=== PATIENT | female | born 1985 | race Caucasian/White ===

== ENCOUNTER 2016-04-16 19:11 | Emergency (ER) | payer OTHER, MEDICAID ==
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
[2016-04-16] MEDS ORDERED: HYDROCODONE/ACETAMINOPHEN 5-325 MG 6 TAB/DSPK PO PRN (22:53)
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
[2016-04-16 23:51] VITALS: BP 103/57
== END 2016-04-16 23:45 | disposition home or self-care (01) ==
LOC: ER 19:11
DX: S16.1XXA Strain of muscle, fascia and tendon at neck level, initial encounter (principal); S50.02XA Contusion of left elbow, initial encounter; V43.62XA Car passenger injured in collision with other type car in traffic accident, initial encounter; M25.522 Pain in left elbow; M54.2 Cervicalgia; M54.89 Other dorsalgia; I10 Essential (primary) hypertension; F17.200 Nicotine dependence, unspecified, uncomplicated; Z88.6 Allergy status to analgesic agent; Z88.5 Allergy status to narcotic agent; Z98.890 Other specified postprocedural states; Z87.81 Personal history of (healed) traumatic fracture
CPT/HCPCS: 72050; 99283

== ENCOUNTER → 2016-10-22 | Outpatient (CLI) | payer OTHER, MEDICAID ==
--- NOTE | 2016-10-22 15:52 | RADIOLOGY REPORT (SQ) ---
EXAM DESCRIPTION: BARIUM SWALLOW PHARYNX ONLY COMPLETED DATE/TIME: 10/22/2016 8:50 am REASON FOR STUDY: HIATAL HERNIA (K44.9) K44.9 DIAPHRAGMATIC HERNIA WITHOUT OBSTRUCTION OR GANGRENE COMPARISON: None. TECHNIQUE: Under fluoroscopic guidance, patient ingested effervescent granules followed by thick and thin barium. Fluoroscopic spot images and routine radiographic images acquired and stored on PACS. 12 MM BARIUM TABLET GIVEN: Yes. No significant delay in passage. LIMITATIONS: None. FLUOROSCOPY TIME: FLUORO TIME: 44 seconds Is 10 images saved to PACS. FINDINGS: NEUROMUSCULAR COORDINATION OF SWALLOW: Normal. No aspiration. ESOPHAGEAL MOTILITY: Normal peristalsis. No esophageal spasm. ESOPHAGEAL MUCOSA: Normal mucosa without masses or ulceration. GASTRO-ESOPHAGEAL JUNCTION: Small sliding hiatal hernia. No reflux. NON-GI TRACT STRUCTURES: No significant finding. OTHER: No other significant finding. IMPRESSION: Small sliding hiatal hernia. No reflux observed. COMMENT: Quality ID [id number]: Final reports for procedures using fluoroscopy that document radiation exp osure indices, or exposure time and number of fluorographic images (if radiation exposure indices are not available) TECHNICAL DOCUMENTATION: JOB ID: [id number] [employer]- All Rights Reserved
== END ==
LOC: RAD 07:46
PROVIDERS: ATTEND Family Medicine
DX: K44.9 Diaphragmatic hernia without obstruction or gangrene (principal)
CPT/HCPCS: 74210

== ENCOUNTER → 2016-11-08 | Outpatient (CLI) | payer OTHER, MEDICAID ==
--- NOTE | 2016-11-09 04:45 | EKG REPORT ---
SEVERITY:- NORMAL ECG - SINUS RHYTHM : Confirmed by: Susana Ortiz MD 09-Nov-2016 04:28:59
== END ==
LOC: OD 15:36
PROVIDERS: ATTEND Family Medicine
DX: R00.2 Palpitations (principal)
CPT/HCPCS: 93005; 93010

== ENCOUNTER 2016-11-10 10:30 | Day surgery (SDC) | payer OTHER, MEDICAID ==
[2016-11-10] MEDS ORDERED: ONDANSETRON HCL INJ/PF 4 MG/2 ML SDV ONE (10:44)
[2016-11-10] MEDS ORDERED: NALOXONE HCL INJ/PF 0.4 MG/1 ML SDV ONE (10:44)
[2016-11-10] MEDS ORDERED: DIPHENHYDRAMINE HCL 50 MG/ML VIAL ONE (10:44)
[2016-11-10] MEDS ORDERED: FLUMAZENIL INJ 0.5 MG/5 ML VIAL ONE (10:45)
[2016-11-10] MEDS ORDERED: EPINEPHRINE INJ 1 MG/10 ML DISP.SYRIN ONE (10:45)
[2016-11-10] MEDS ORDERED: GLUCAGON,HUMAN RECOMB 1 MG INJ ONE (10:45)
[2016-11-10] MEDS: MIDAZOLAM 2 MG/2 ML INJ ONE ×4 (11:12→11:32)
[2016-11-10] MEDS: FENTANYL CITRATE INJ/PF 100 MCG/2 ML AMPUL ONE ×6 (11:14→11:28)
--- NOTE | 2016-11-10 11:38 | Operative Report ---
Operative Report DATE OF SURGERY: 11/10/16 Operative Report: The risks benefits and alternatives of the procedure explained to the patient in detail and informed consent is obtained.A GIF Olympus video scope was inserted into the patient's mouth and hypopharynx, the esophagus is identified intubated and insufflated, the scope was then advanced through the esophagus stomach and duodenum, retroflexion maneuver is done, the esophagus stomach and first and second portions of the duodenum examined PREOPERATIVE DIAGNOSIS: Dysphagia POSTOPERATIVE DIAGNOSIS: Schatzki's ring status post breakage. Esophageal specimens obtained to rule out eosinophilic esophagitis. Hiatal hernia. Gastritis status post biopsy rule out Helicobacter pylori OPERATION: EGD with biopsy SURGEON: JARRET MARQUEZ ANESTHESIA: Moderate Sedation - 7 mg of Versed, 200 mcg of fentanyl. Conscious sedation monitoring time 30 minutes. TISSUE REMOVED OR ALTERED: As noted above. COMPLICATIONS: None. ESTIMATED BLOOD LOSS: None. INTRAOPERATIVE FINDINGS: As noted above. PROCEDURE: Patient tolerated the procedure well. No immediate postprocedure complications are noted. Patient discharged in good condition. Discharge date 11/10/2016. Discharge diet: Regular. Discharge activity: Regular. 2-3 week follow-up to discuss findings. Patient is instructed to call the office or proceed to the emergency room should there be any further problems or questions. We will wait on pathology.
[2016-11-10] MEDS ORDERED: SIMETHICONE 80 MG TAB.CHEW ONE (12:35)
[2016-11-10 13:31] VITALS: BP 97/59
== END 2016-11-10 13:00 | disposition home or self-care (01) ==
LOC: END 10:30
PROVIDERS: ATTEND Internal Medicine Gastroenterology
PROC: 0DB58ZX Excision of Esophagus, Via Natural or Artificial Opening Endoscopic, Diagnostic (ICD-10-PCS; 2016-11-10)
PROC: 0DB68ZX Excision of Stomach, Via Natural or Artificial Opening Endoscopic, Diagnostic (ICD-10-PCS; principal; 2016-11-10 11:00)
DX: K22.2 Esophageal obstruction (principal); K29.50 Unspecified chronic gastritis without bleeding; B96.81 Helicobacter pylori [H. pylori] as the cause of diseases classified elsewhere; K44.9 Diaphragmatic hernia without obstruction or gangrene
CPT/HCPCS: 43239; 88342 ×2; 88305 ×2; J2250; J3010; J0171; J1200; J1610; J2310; J2405; J3490

== ENCOUNTER 2017-01-25 12:15 | Emergency (ER) | payer MEDICAID, OTHER ==
--- NOTE | 2017-01-25 13:12 | ER Document Report ---
ED GI/ - General Chief Complaint: Abdominal Pain Stated Complaint: ABDOMINAL PAIN Time Seen by Provider: 01/25/17 13:12 Mode of Arrival: Ambulatory Information source: Patient Notes: PCP: Dr. Pope. 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 Also had red blood with BM today, hx hemorroids. TRAVEL OUTSIDE OF THE [place] IN LAST 30 DAYS: No - Related Data Allergies/Adverse Reactions: codeine Allergy (Verified 01/25/17 12:17) Anaphylaxis Past Medical History - General Information source: Patient - Social History Smoking Status: Current Every Day Smoker Frequency of alcohol use: None Drug Abuse: None Lives with: Spouse/Significant other Family History: Reviewed & Not Pertinent Patient has suicidal ideation: No Patient has homicidal ideation: No - Past Medical History Cardiac Medical History: Neurological Medical History: Reports: Hx Migraine, Hx Seizures - epilepsy Endocrine Medical History: Reports: Hx Hypothyroidism Renal/ Medical History: Denies: Hx Peritoneal Dialysis GI Medical History: Reports: Other - hemorrhoids Musculoskeltal Medical History: Reports Hx Arthritis - possibly LT elbow, osteoarthritis, Reports Hx Musculoskeletal Trauma Psychiatric Medical History: Reports: Hx Anxiety, Hx Depression Traumatic Medical History: Reports: Hx Fractures Infectious Medical History: Past Surgical History: Reports: Hx Abdominal Surgery - intestines, Hx Appendectomy, Hx Section, Hx Cholecystectomy, Hx Orthopedic Surgery - L elbow, L shoulder, Hx Thyroid Surgery, Hx Tonsillectomy - Immunizations Immunizations up to date: Yes Hx Diphtheria, Pertussis, Tetanus Vaccination: Yes Review of Systems - Review of Systems Constitutional: No symptoms reported EENT: No symptoms reported Cardiovascular: No symptoms reported Respiratory: No symptoms reported Gastrointestinal: See HPI Genitourinary: No symptoms reported Female Genitourinary: No symptoms reported Musculoskeletal: No symptoms reported Skin: No symptoms reported Hematologic/Lymphatic: No symptoms reported Neurological/Psychological: No symptoms reported Physical Exam - Vital signs Vitals: Temp Resp BP Pulse Ox 98.0 F 18 105/71 99 01/25/17 15:03 01/25/17 15:03 01/25/17 15:03 01/25/17 15:03 Interpretation: Normal - General General appearance: Appears well, Alert - HEENT Head: Normocephalic, Atraumatic Eyes: Normal Pupils: PERRL Pharynx: Normal Neck: Supple - Respiratory Respiratory status: No respiratory distress Chest status: Tender - lower right lateral sternal margin, no rash or bruise Breath sounds: Normal Chest palpation: Normal - Cardiovascular Rhythm: Regular Heart sounds: Normal auscultation Murmur: No - Abdominal Inspection: Normal Distension: No distension Bowel sounds: Normal Tenderness: Nontender. No: Tender Organomegaly: No organomegaly - Rectal Tenderness: No Hemorrhoids: None - visualized - Back Back: Normal, Nontender - Extremities General upper extremity: Normal inspection, Nontender, Normal color, Normal ROM , Normal temperature General lower extremity: Normal inspection, Nontender, Normal color, Normal ROM , Normal temperature, Normal weight bearing. No: Sb's sign - Neurological Neuro grossly intact: Yes Cognition: Normal Orientation: AAOx4 [place] Coma Scale Eye Opening: Spontaneous [place] Coma Scale Verbal: Oriented [place] Coma Scale Motor: Obeys Commands [place] Coma Scale Total: 15 Speech: Normal Motor strength normal: LUE, RUE, LLE, RLE Sensory: Normal - Psychological Associated symptoms: Normal affect, Normal mood - Skin Skin Temperature: Warm Skin Moisture: Dry Skin Color: Normal Skin irregularity: negative: Rash Course - Re-evaluation Re-evalutation: 01/25/17 14:40 labs not done yet. Chest xray negative. - Vital Signs Vital signs: Temp Pulse Resp BP Pulse Ox 98.6 F 66 18 102/65 97 01/25/17 16:20 01/25/17 16:20 01/25/17 15:03 01/25/17 16:20 01/25/17 16:20 - Laboratory Result Diagrams: 01/25/17 14:58 01/25/17 14:58 Laboratory results interpreted by me: 01/25/17 01/25/17 14:58 14:58 WBC 12.4 H Monocytes % (Manual) 2 L Abs Neuts (Manual) 9.2 H BUN 21 H Calcium 10.7 H AST 160 H ALT 269 H Alkaline Phosphatase 235 H Discharge - Discharge Clinical Impression: left sternal margin strain, Nausea, Liver enzyme elevation Condition: Good Disposition: HOME, SELF-CARE Instructions: Use of [id number] Ibuprofen ([facility]), Liver Function Abnormality ([facility]), Muscle Strain ([facility]) Additional Instructions: no tylenol take ibuprofen for pain warm compress copy of labs given to you Referrals: SANDRA POPE DO [Primary Care Provider] - 01/27/17
--- NOTE | 2017-01-25 14:04 | RADIOLOGY REPORT (SQ) ---
EXAM DESCRIPTION: CHEST PA/LAT COMPLETED DATE/TIME: 01/25/2017 1:57 pm REASON FOR STUDY: left lower sternal margin tender COMPARISON: Two-view chest 05/04/2014 EXAM PARAMETERS: NUMBER OF VIEWS: two views TECHNIQUE: Digital Frontal and Lateral radiographic views of the chest acquired. RADIATION DOSE: NA LIMITATIONS: none FINDINGS: LUNGS AND PLEURA: No opacities, masses or pneumothorax. No pleural effusion. MEDIASTINUM AND HILAR STRUCTURES: No masses or contour abnormalities. HEART AND VASCULAR STRUCTURES: Heart normal size. No evidence for failure. BONES: No acute findings. HARDWARE: None in the chest. OTHER: No other significant finding. IMPRESSION: NO SIGNIFICANT RADIOGRAPHIC FINDING IN THE CHEST. TECHNICAL DOCUMENTATION: JOB ID: [id number] [employer]- All Rights Reserved
[2017-01-25] MEDS ORDERED: ACETAMINOPHEN 325 MG TABLET PO ONE (14:39)
[2017-01-25 15:24] LABS: HEMATOCRIT 36.3 % (36.0-47.0); HEMOGLOBIN 12.4 g/dL (12.0-15.5); HGB HCT DIFFERENCE 0.9; MEAN CORPUSCULAR VOLUME 91 fl (80-97); RED BLOOD COUNT 3.99 10^6/uL (3.72-5.28); RED CELL DISTRIBUTION WIDTH 13.6 % (11.5-14.0); WHITE BLOOD COUNT 12.4 10^3/uL (4.0-10.5)
[2017-01-25 15:32] LABS: APPEARANCE,URINE CLEAR; BILIRUBIN,URINE NEGATIVE (NEGATIVE); GLUCOSE, URINE NEGATIVE (NEGATIVE); KETONES,URINE NEGATIVE (NEGATIVE); LEUKOCYTE ESTERASE,URINE NEGATIVE (NEGATIVE); NITRITE,URINE NEGATIVE (NEGATIVE); PROTEIN,URINE NEGATIVE (NEGATIVE); URINE SPECIFIC GRAVITY 1.016; UROBILINOGEN,URINE NEGATIVE mg/dL (<2.0)
[2017-01-25 15:39] LABS: ALANINE AMINOTRANSFERASE 269 U/L (9-52); ALBUMIN 4.3 g/dL (3.5-5.0); ALKALINE PHOSPHATASE 235 U/L (38-126); ANION GAP 8 (5-19); ASPARTATE AMINO TRANSFERASE 160 U/L (14-36); BILIRUBIN,DIRECT 0.2 mg/dL (0.0-0.4); BILIRUBIN,TOTAL 0.4 mg/dL (0.2-1.3); BLOOD UREA NITROGEN 21 mg/dL (7-20); CALCIUM 10.7 mg/dL (8.4-10.2); CARBON DIOXIDE 27 mmol/L (22-30); CHLORIDE 106 mmol/L (98-107); CREATININE RESULT 1.05 mg/dL (0.52-1.25); GLUCOSE 94 mg/dL (75-110); LIPASE 49.5 U/L (23-300); POTASSIUM 4.1 mmol/L (3.6-5.0); SODIUM 141.2 mmol/L (137-145); TOTAL PROTEIN 7.3 g/dL (6.3-8.2)
[2017-01-25 15:57] LABS: ABSOLUTE EOSINOPHILS# (MANUAL) 0.4 10^3/uL (0.0-0.6); BASOPHILS % (MANUAL) 1 % (0-2); EOSINOPHILS % (MANUAL) 3 % (0-6); LYMPHOCYTES % (MANUAL) 20 % (13-45); TOTAL CELLS COUNTED 100
[2017-01-25 15:59] LABS: TOXIC GRANULATION 1+
[2017-01-25 16:30] VITALS: BP 102/65
== END 2017-01-25 16:20 | disposition home or self-care (01) ==
LOC: ER 12:15
DX: S29.011A Strain of muscle and tendon of front wall of thorax, initial encounter (principal); W03.XXXA Other fall on same level due to collision with another person, initial encounter; R74.8 Abnormal levels of other serum enzymes; R10.9 Unspecified abdominal pain; R11.0 Nausea; F17.200 Nicotine dependence, unspecified, uncomplicated; Z88.6 Allergy status to analgesic agent; Z90.49 Acquired absence of other specified parts of digestive tract
CPT/HCPCS: 36415; 71020; 80053; 81001; 83690; 84703; 85025; 87086; 99284

== ENCOUNTER 2017-03-27 00:50 | Emergency (ER) | payer OTHER ==
[2017-03-27 02:02] LABS: HEMATOCRIT 36.8 % (36.0-47.0); HEMOGLOBIN 12.5 g/dL (12.0-15.5); MEAN CORPUSCULAR HEMOGLOBIN 30.4 pg (27.0-33.4); MEAN CORPUSCULAR HGB CONC 34.1 g/dL (32.0-36.0); MEAN CORPUSCULAR VOLUME 89 fl (80-97); PLATELET COUNT 364 10^3/uL (150-450); RED BLOOD COUNT 4.12 10^6/uL (3.72-5.28); RED CELL DISTRIBUTION WIDTH 13.1 % (11.5-14.0); WHITE BLOOD COUNT 20.3 10^3/uL (4.0-10.5)
[2017-03-27 02:17] LABS: ABSOLUTE LYMPHOCYTES# (MANUAL) 6.9 10^3/uL (0.5-4.7); ABSOLUTE NEUTROPHILS# (MANUAL) 11.8 10^3/uL (1.7-8.2); EOSINOPHILS % (MANUAL) 1 % (0-6); LYMPHOCYTES % (MANUAL) 34 % (13-45); MONOCYTES % (MANUAL) 5 % (3-13); SEGMENTED NEUTROPHILS % (MAN) 58 % (42-78); TOTAL CELLS COUNTED 100
[2017-03-27 02:19] LABS: ALANINE AMINOTRANSFERASE 73 U/L (9-52); ALBUMIN 4.4 g/dL (3.5-5.0); ALKALINE PHOSPHATASE 160 U/L (38-126); ANION GAP 14 (5-19); ASPARTATE AMINO TRANSFERASE 28 U/L (14-36); BILIRUBIN,DIRECT 0.2 mg/dL (0.0-0.4); BILIRUBIN,TOTAL 0.2 mg/dL (0.2-1.3); BLOOD UREA NITROGEN 7 mg/dL (7-20); CALCIUM 7.9 mg/dL (8.4-10.2); CARBON DIOXIDE 25 mmol/L (22-30); CHLORIDE 105 mmol/L (98-107); GLUCOSE 84 mg/dL (75-110); POTASSIUM 4.1 mmol/L (3.6-5.0); SODIUM 143.7 mmol/L (137-145); TOTAL PROTEIN 7.4 g/dL (6.3-8.2)
[2017-03-27 02:25] LABS: BASOPHILS % (MANUAL) 2 % (0-2); PLATELET CLUMPS PRESENT; PLATELET COMMENT ADEQUATE; PLATELET LARGE PRESENT
[2017-03-27 02:27] LABS: RBC MORPHOLOGY COMMENT NORMO-CYTIC/CHROMIC
[2017-03-27 03:15] LABS: APPEARANCE,URINE CLEAR; BILIRUBIN,URINE NEGATIVE (NEGATIVE); COLOR,URINE STRAW; GLUCOSE, URINE NEGATIVE (NEGATIVE); KETONES,URINE NEGATIVE (NEGATIVE); LEUKOCYTE ESTERASE,URINE NEGATIVE (NEGATIVE); NITRITE,URINE NEGATIVE (NEGATIVE); PROTEIN,URINE NEGATIVE (NEGATIVE); URINE SPECIFIC GRAVITY 1.002; UROBILINOGEN,URINE NEGATIVE mg/dL (<2.0)
[2017-03-27] MEDS ORDERED: CALCIUM GLUCONATE 1000 MG/10 ML INJ IV ONE (03:17)
[2017-03-27] MEDS ORDERED: DIAZEPAM INJ 10 MG/2 ML DISP.SYRIN IV ONE (03:27)
[2017-03-27 04:11] LABS: FREE T4 (FREE THYROXINE) 1.3 ng/dL (0.78-2.19)
--- NOTE | 2017-03-27 04:20 | ER Document Report ---
ED General - General Chief Complaint: Tremor Stated Complaint: ANXIETY Time Seen by Provider: 03/27/17 03:15 Notes: She is a 31-year-old female who presents with complaints of having spasm into her arms and legs and feels as if her fingers will not open up. 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 She says she is followed by Dr. dale akers. She said she was recently had a calcium levels drawn and there will bit low. TSH level was also high. They kept her thyroid at the same level. She says that she is now developed the carpopedal spasms she fears that her calcium and magnesium may be way off. She is to follow with a child & adolescent psychiatrist. She said she stopped following with child & adolescent psychiatrist since he was in [place] and her primary care doctor was here in [place]. She said she preferred just to follow with her primary care doctor. She says her calcium levels have always fluctuated. She says she is taking her calcium supplement as prescribed. TRAVEL OUTSIDE OF THE [place] IN LAST 30 DAYS: No - Related Data Allergies/Adverse Reactions: codeine Allergy (Verified 01/25/17 12:17) Anaphylaxis Past Medical History - Social History Smoking Status: Current Every Day Smoker Frequency of alcohol use: None Drug Abuse: None Family History: Reviewed & Not Pertinent Patient has suicidal ideation: No Patient has homicidal ideation: No - Past Medical History Cardiac Medical History: Denies: Hx Coronary Artery Disease, Hx Heart Attack, Hx Hypertension - Hx of low BP Pulmonary Medical History: Denies: Hx Asthma, Hx Bronchitis, Hx COPD, Hx Pneumonia, Hx Tuberculosis Neurological Medical History: Reports: Hx Migraine, Hx Seizures - epilepsy. Denies: Hx Cerebrovascular Accident Endocrine Medical History: Reports: Hx Hypothyroidism Renal/ Medical History: Denies: Hx Peritoneal Dialysis GI Medical History: Musculoskeltal Medical History: Reports Hx Arthritis - possibly LT elbow, osteoarthritis, Reports Hx Musculoskeletal Trauma Psychiatric Medical History: Reports: Hx Anxiety, Hx Depression - with anxiety Traumatic Medical History: Reports: Hx Fractures Infectious Medical History: Past Surgical History: Reports: Hx Abdominal Surgery - intestines, Hx Appendectomy, Hx Section, Hx Cholecystectomy, Hx Orthopedic Surgery - L elbow, L shoulder, Hx Thyroid Surgery, Hx Tonsillectomy. Denies: Hx Hysterectomy - Immunizations Immunizations up to date: Yes Hx Diphtheria, Pertussis, Tetanus Vaccination: Yes Review of Systems - Review of Systems Notes: My Normal Review Basic REVIEW OF SYSTEMS: CONSTITUTIONAL : Denies fever, chills, or sweats. Denies recent illness. EENT: Denies eye, ear, throat, or mouth pain or symptoms. Denies nasal or sinus congestion. RESPIRATORY: Denies cough, cold, or chest congestion. Denies shortness of breath, difficulty breathing, or wheezing. GASTROINTESTINAL: Denies abdominal pain. Denies nausea, vomiting, or diarrhea. Denies constipation. Last BM: MUSCULOSKELETAL: Muscle spasm. Carpopedal spasm. SKIN: Denies rash or skin lesions. NEUROLOGICAL: Denies altered mental status or loss of consciousness. Denies headache. Denies weakness or paralysis or loss of use of either side. Denies problems with gait or speech. Denies sensory or motor loss. ALL OTHER SYSTEMS REVIEWED AND NEGATIVE. Physical Exam - Vital signs Vitals: Temp Pulse Resp BP Pulse Ox 97.9 F 82 20 105/63 100 03/27/17 00:59 03/27/17 00:59 03/27/17 00:59 03/27/17 00:59 03/27/17 00:59 - Notes Notes: General Appearance: Well nourished, alert, cooperative, no acute distress, moderate obvious discomfort. Vitals: reviewed, See vital signs table. Head: no swelling or tenderness to the head Eyes: PERRL, EOMI, Conjuctiva clear Mouth: No decreasd moisture Lungs: No wheezing, No rales, No rhonci, No accessory muscle use, good air exchange bilaterally. Heart: Normal rate, Regular rythm, No murmur, no rub Abdomen: Normal BS, soft, No rigidity, No abdominal tenderness, No guarding, no rebound, no abdominal masses, no organomegaly Extremities: strength 5/5 in all extremities, good pulses in all extremities, carpopedal spasms into both hands. Reflexes in the lower extremities are normal. No redness or swelling to the extremities. Skin: warm, dry, appropriate color, no rash Neuro: speech clear, oriented x 3, normal affect, responds appropriately to questions. Cranial nerves II through XII are intact. Distal sensation intact. Course - Re-evaluation Re-evalutation: 03/28/17 04:15 After receiving IV calcium patient's carpopedal spasm resolved. She looks well. Her QT interval is normal. Her TSH is a little bit low which is opposite of what was just a week ago. She has not changed the dosage in her thyroid medication. It appears that her TSH does fluctuate. I will therefore not adjust her thyroid medication. I talked about the need to follow-up with an child & adolescent psychiatrist being that she has had difficulty controlling her calcium levels for some time now. She agrees with me on this. I informed her that her primary care doctor is doing a good job; however, when there is still difficulty controlling her calcium levels as she has an child & adolescent psychiatrist is probably the best physician to follow-up with regards to that. I still encouraged her follow-up with Dr. Pope early this week for close reevaluation. I encouraged her return to ER anytime if she has recurrent spasms , palpitations, or she feels unwell. Patient agrees with plan will be discharged home. Dictation of this chart was performed using voice recognition software; therefore, there may be some unintended grammatical errors. - Vital Signs Vital signs: Temp Pulse Resp BP Pulse Ox 98.0 F 76 16 101/56 L 100 03/27/17 05:30 03/27/17 05:30 03/27/17 05:30 03/27/17 05:30 03/27/17 05:30 - Laboratory Result Diagrams: 03/27/17 01:34 03/27/17 01:34 Laboratory results interpreted by me: 03/27/17 03/27/17 03/27/17 01:34 01:34 01:34 WBC 20.3 H Abs Neuts (Manual) 11.8 H Abs Lymphs (Manual) 6.9 H Abs Basophils (Manual) 0.4 H Calcium 7.9 L ALT 73 H Alkaline Phosphatase 160 H TSH 0.10 L - EKG Interpretation by Me Additional EKG results interpreted by me: 03/27/17 04:19 EKG is reviewed and interpreted by me. EKG shows sinus rhythm with rate [address] segment elevation or depression. No ischemic T-wave inversions. ND interval, QRS duration, QTc intervals are within normal range. No old EKG available for comparison. Discharge - Discharge Clinical Impression: Hypocalcemia, Carpopedal spasm Condition: Good Disposition: HOME, SELF-CARE Additional Instructions: PLease follow up with Dr. Pope on Tuesday for recheck of your calcium. please continue to take your calcium as prescribed. Please follow back up with your child & adolescent psychiatrist being that your calcium level is fluctuating and hard to control. Cotinue the same dose of your thyroid medication. Please return to the ER immediately if you have recurrent worsening spasms, irregular heart beats, vomiting, or if you feel unwell. Referrals: SANDRA POPE DO [Primary Care Provider] - 03/28/17
[2017-03-27 04:25] LABS: THYROID STIMULATING HORMONE 0.1 uIU/mL (0.47-4.68)
[2017-03-27 05:31] VITALS: BP 101/56
--- NOTE | 2017-03-27 09:34 | EKG REPORT ---
SEVERITY:- NORMAL ECG - SINUS RHYTHM : Confirmed by: Lc Quintanilla 27-Mar-2017 09:33:47
== END 2017-03-27 05:44 | disposition home or self-care (01) ==
LOC: ER 00:50
DX: E83.51 Hypocalcemia (principal); Z79.899 Other long term (current) drug therapy; E89.0 Postprocedural hypothyroidism; R29.0 Tetany; F17.200 Nicotine dependence, unspecified, uncomplicated; Z87.892 Personal history of anaphylaxis; Z88.5 Allergy status to narcotic agent
CPT/HCPCS: 93005; 99284; 96374; 96375; 36415; 84439; 83735; 84443; 85025; 80053; 81001; 93010; J0610; J3360